=== PATIENT | female | born 2000 | race Hispanic/Latino ===

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

== ENCOUNTER 2019-05-31 18:02 | Emergency (ER) | payer MEDICAID, OTHER | END 2019-05-31 20:11 | disposition home or self-care (01) | LOC: EDH 18:02 | DX: N64.4 Mastodynia (principal) | CPT/HCPCS: 81025 ==

== ENCOUNTER 2019-10-25 11:26 | Emergency (ER) | payer OTHER ==
[2019-10-25] MEDS ORDERED: IBUPROFEN 200 MG TAB ONE (12:18)
[2019-10-25] MEDS ORDERED: IBUPROFEN 400 MG TABLET ONE (12:18)
== END 2019-10-25 13:49 | disposition home or self-care (01) ==
LOC: EDH 11:26
DX: N94.6 Dysmenorrhea, unspecified (principal); Z72.0 Tobacco use
CPT/HCPCS: 81025

== ENCOUNTER 2025-06-07 07:11 | Emergency (ER) | payer SELFPAY ==
[~2025-06-07] VITALS: Ht 160 cm; Wt 63.5 kg
--- NOTE | 2025-06-07 07:27 | ERN ---
General Chief Complaint: Nausea,Vomiting,Diarrhea Stated Complaint: NAUSEA Time Seen by MD: 07:15 Source: patient History of Present Illness Initial Comments Patient is a 25-year-old female at six weeks by date coming in due to nauseousness. Per patient she recently found out she was . She states he has been having nauseousness since then. No abdominal pain no fever no chills. Allergies: Coded Allergies: No Known Drug Allergies (Unverified Allergy, Unknown, 09/16/17) Home Meds No Active Prescriptions or Reported Meds Past Medical History Past Medical History: No Pertinent History Past Surgical History: None Female( History) : 4 Para: 2 Aborts: 0 ROS Dictation CONSTITUTIONAL: No chills, no fever, no weakness, no diaphoresis, no malaise. HEAD/FACE: No signs of trauma. EENT: No eye pain, no blurred vision, no tearing, no double vision, no ear pain, no ear discharge, no nose pain, no nasal congestion, no throat pain, no throat swelling, no mouth pain. RESPIRATORY: No cough, no orthopnea, no SOB, no stridor, no wheezing. CARDIOVASCULAR: No chest pain, no edema, no palpitations, no syncope. GASTROINTESTINAL/ABDOMINAL: No abdominal pain, no constipation, no diarrhea, no nausea, no vomiting. GENITOURINARY: No abnormal discharge, no dysuria, no frequent urination, no hematuria. No complaints of pain in the genitals. MUSCULOSKELETAL: No back pain, no gout, no joint pain, no joint swelling, no muscle pain, no muscle stiffness, no neck pain. INTEGUMENTARY: No change in color, no change in hair/nails, no dryness, no l esion, no lumps, no rash. NEUROLOGICAL/PSYCH: No anxiety, not depressed, no emotional problem, no headache, no numbness, no pre-existing deficit, no history of seizures, no tremors, no weakness. HEMATOLOGIC/LYMPHATIC: Not anemic, no history of blood clots, no apparent bleeding, no bruising, glands not swollen. All Systems Negative, Except as Noted. Physical Exam Physical Exam Dictation VITAL SIGNS: Reviewed. GENERAL APPEARANCE: Alert, oriented x3, no acute distress, obese. HEAD AND FACE: Non-traumatic. EYES: PERRL, pink conjunctivas, eyelid no trauma, anterior chamber clear. EARS: Pinnas intact and no signs of trauma or erythema. Ear canals clear and no discharge. TMs no erythema. NOSE: No discharge, no bleeding. OROPHARYNX: Mouth normal, teeth no caries, tongue pink. Pharynx clear, no erythema. Tonsils no exudates, no abscesses noted. Mucous membrane moist. NECK: Supple, non-tender, no thyromegaly, no masses, no JVD, no bruits. BREAST: Deferred. CHEST: No tenderness, no crepitus, no paradoxical movement, no retractions. LUNGS: Clear, well-ventilated, symmetric, no rales, no wheezing, no rhonchi, no stridor, good breath sounds bilaterally. HEART: Regular rate, regular rhythm, no murmur, no gallops. VASCULAR: No peripheral edema. ABDOMEN: Soft, positive bowel sounds, nondistended, no guarding, nontender, no rebound, no masses no hepatomegaly, no splenomegaly, no Gordon's sign, no hernias. RECTAL: Deferred. GENITAL: Deferred. NEUROLOGICAL: Normal speech, gross motor function intact, gross sensory function intact. MUSCULOSKELETAL: Neck nontender, full range of motion, back nontender, full range of motion. EXTREMITIES: Nontender, full range of motion. SKIN: Color pink, dry, no turgor, no rash, no lacerations, no abrasions, no contusions. LYMPHATICS: Deferred. Results Laboratory and Microbiology Lab and Micro Result Laboratory Tests Test 06/07/25 07:30 White Blood Count 6.9 K/uL (4.8-10.8) Red Blood Count 4.92 MIL/uL (4.00-5.50) Hemoglobin 14.4 g/dL (12.0-16.0) Hematocrit 42.0 % (36-48) Mean Corpuscular Volume 85.4 fL (79-99) Mean Corpuscular Hemoglobin 29.3 pg (27.0-33.0) Mean Corpuscular Hemoglobin Concent 34.3 g/dL (32.0-36.0) Red Cell Distribution Width 12.6 % (11.0-15.5) Platelet Count 224 K/uL (130-400) Mean Platelet Volume 10.3 fL (7.5-10.5) Immature Granulocyte % (Auto) 0.1 % (0-1) Neutrophils (%) (Auto) 65.4 % (40.0-77.0) Lymphocytes (%) (Auto) 26.2 % (21.0-51.0) Monocytes (%) (Auto) 5.8 % (3.0-13.0) Eosinophils (%) (Auto) 2.2 % (0.0-8.0) Basophils (%) (Auto) 0.3 % (0.0-5.0) Neutrophils # (Auto) 4.5 K/uL (1.8-7.7) Lymphocytes # (Auto) 1.8 K/uL (1.0-4.8) Monocytes # (Auto) 0.4 K/uL (0.1-1.0) Eosinophils # (Auto) 0.15 K/uL (0.00-0.70) Basophils # (Auto) 0.02 K/uL (0.00-0.20) Absolute Immature Granulocyte (auto 0.01 K/uL (0-1) Nucleated Red Blood Cells 0.0 % (0.0-0.19) Urine Color YELLOW (YELLOW) Urine Appearance CLOUDY (CLEAR) H Urine pH 6.0 (5.0-8.0) Urine Specific [place] 1.025 (1.001-1.031) Urine Protein 20 mg/dL (NEGATIVE) H Urine Glucose (UA) NEGATIVE mg/dL (NEGATIVE) Urine Ketones 150 mg/dL (NEGATIVE) H Urine Occult Blood NEGATIVE (NEGATIVE) Urine Nitrate 2+ (NEGATIVE) H Urine Bilirubin NEGATIVE mg/dL (NEGATIVE) Urine Urobilinogen 0.2 mg/dL (0.2-1.0) Urine Leukocyte Esterase 500 Dixie/uL (NEGATIVE) H Urine RBC 2-5 /HPF (0-1) H Urine WBC 11-25 /HPF (0-1) H Urine Squamous Epithelial Cells MOD /HPF (0-2) Urine Bacteria MOD /HPF (None Seen) Urine HCG, Qualitative POSITIVE (NEGATIVE) H Sodium Level 137 mmol/L (136-145) Potassium Level 3.0 mmol/L (3.5-5.1) *L Chloride Level 102 mmol/L (101-111) Carbon Dioxide Level 26 mmol/L (21-32) Blood Urea Nitrogen 8 mg/dL (7-18) Creatinine 0.6 mg/dL (0.5-1.0) Glomerular Filtration Rate Calc 127 mL/min (>90) Random Glucose 89 mg/dL (70-105) Total Calcium 8.4 mg/dL (8.5-10.1) L Human Chorionic Gonadotropin, Quant 2490 mIU/mL (0-5) H Labs Reviewed?: Yes MDM MDM: Differential diagnosis: , nausea vomiting, UTI, hypokalemia Rationale: Tests considered and ordered secondary to shared decision making include: Previous outside records reviewed: Old ER visits. Risk of complication and/or morbidity or mortality of patient management: None Medications-Per medication reconciliation Need for hospitalization: Patient does not meet criteria for hospitalization. Need for emergency major/minor surgery: No Patient is a 25-year-old female coming in complaining of nauseousness and vomiting. Per patient she recently found out she was . Laboratory workup positive for urinary tract infection potassium was low and was replaced. Patient will be discharged in stable condition with a diagnosis of UTI hypokalemia and new onset ED Course Orders Procedure Category Date Status Time Cbc With Differential LAB 06/07/25 Complete 07:21 ,Urine Test LAB 06/07/25 Complete 07:21 Urinalysis Profile LAB 06/07/25 Complete 07:21 0.9%Nacl 1000ml (Ns PHA 06/07/25 Complete 1000ml) 07:30 Basic Metabolic Panel LAB 06/07/25 Complete 07:21 Ondansetron 4mg Inj PHA 06/07/25 Complete (Zofran 4mg Inj) 07:30 Hcg,Quantitative LAB 06/07/25 Complete 07:21 Culture Urine RADHA 06/07/25 In Process 07:46 Ceftriaxone 1g Vial PHA 06/07/25 Complete (Rocephine 1g Inj) 08:00 Potassium Bicarb/Cit PHA 06/07/25 Transmitted Ac 25meq (K-Lyte Ta 09:00 Current Medications Medications (Trade) Dose Ordered Sig/Maria D Route PRN Reason Start Time Stop Time Status Last Admin Dose Admin Ceftriaxone Sodium (ROCEphine 1G INJ) 1 gm ONCE ONCE IVPB 06/07/25 08:00 06/07/25 08:01 DC 06/07/25 08:29 Ondansetron HCl (zoFRAN 4MG INJ) 4 mg ONCE ONCE IVP 06/07/25 07:30 06/07/25 07:31 DC 06/07/25 08:29 Sodium Chloride 1,000 ml @ 0 mls/hr ONCE ONCE IV 06/07/25 07:30 06/07/25 07:31 DC 06/07/25 08:29 Vital Signs Date Time Temp Pulse Resp B/P (MAP) Pulse Ox O2 Delivery O2 Flow Rate FiO2 06/07/25 08:00 97.5 87 16 116/82 98 Room Air* 0 21 06/07/25 07:12 98.1 95 16 119/85 97 Room Air DX & DISP Disposition: Discharge Departure Impression: Primary Impression: UTI (urinary tract infection) Additional Impressions: , Hypokalemia Condition: Stable Scripts Doxylamine/Pyridoxine HCl (Diclegis Dr 10-10 mg Tablet) 10 Mg-10 Mg Tablet.dr 2 TAB PO HS for 10 Days, #20 TAB 0 Refills Prov: CHRIS VERONICA MD 06/07/25 Cephalexin Monohydrate (Keflex) 500 Mg Cap 1 CAP PO BID for 10 Days, #20 CAP 0 Refills Prov: CHRIS VERONICA MD 06/07/25 Additional Instructions: FOLLOW-UP WITH PRIMARY CARE PROVIDER IN 1 TO 2 DAYS. TAKE MEDICATIONS DIRECTED HERE IN THE EMERGENCY ROOM. OKAY TO CONTINUE HOME MEDICATIONS UNLESS OTHERWISE DISCUSSED DURING YOUR VISIT IN THE EMERGENCY ROOM TODAY. RETURN TO YOUR NEAREST EMERGENCY ROOM IF SYMPTOMS WORSEN OR IF THERE IS NO IMPROVEMENT. CALL 911 IF YOU NEED IMMEDIATE ASSISTANCE. TAKE TYLENOL [id number] NEEDED AND IF NO CONTRAINDICATIONS ARE PRESENT. INCREASE ORAL HYDRATION. A WOUND CULTURE OR URINE CULTURE WAS ORDERED HERE IN THE EMERGENCY ROOM DEPARTMENT PLEASE FOLLOW-UP WITH PRIMARY CARE PROVIDER AND ADVISE THEM TO GET REPORTS FROM OUR FACILITY. IF YOU HAD ANY YURY WRAP/SPLINTS THAT WERE APPLIED HERE, PLEASE DO NOT REMOVE THEM UNTIL YOU SEE YOUR PRIMARY CARE OR SPECIALTY. Referrals: Referrals: SELF,REFERRAL (PCP) RADHA JUAREZ MD Time of Disposition: 08:59 CHRIS VERONICA MD Jun 07, 2025 07:27
[2025-06-07 07:43] LABS: IMMATURE GRANULOCYTE ABSOLUTE 0.01 K/uL (0-1); NUCLEATED RED BLOOD CELLS 0.0 % (0.0-0.19); PLATELET COUNT (AUTO) 224 K/uL (130-400); RED BLOOD CELL COUNT(AUTO) 4.92 MIL/uL (4.00-5.50); RED CELL DISTRIBUTION WIDTH 12.6 % (11.0-15.5); WHITE BLOOD COUNT (AUTO) 6.9 K/uL (4.8-10.8)
[2025-06-07 07:45] LABS: APPEARANCE,URINE CLOUDY (CLEAR); GLUCOSE, URINE (UA) NEGATIVE (NEGATIVE); LEUKOCYTE ESTERASE ,URINE 500 Leu/uL (NEGATIVE); NITRATE,URINE 2+ (NEGATIVE); OCCULT BLOOD,URINE NEGATIVE (NEGATIVE)
[2025-06-07 07:46] LABS: ADD UA MICROSCOPIC YES
[2025-06-07 07:51] LABS: HCG,QUALITATIVE URINE POSITIVE (NEGATIVE)
[2025-06-07 07:52] LABS: SQUAMOUS EPITHELIAL CELL,UR MOD /HPF (0-2)
[2025-06-07] MEDS: 0.9%NACL 1000ML 1,000 ML IV ONE (08:29)
[2025-06-07 08:40] LABS: CREATININE 0.6 mg/dL (0.5-1.0); GLOMERULAR FILTR. RATE CALC 127.0 mL/min (>90); GLUCOSE,RANDOM 89.0 mg/dL (70-105); HCG,QUANTITATIVE 2490.0 mIU/mL (0-5); SODIUM SERUM 137.0 mmol/L (136-145); UREA NITROGEN, BLOOD 8.0 mg/dL (7-18)
[2025-06-07] MEDS ORDERED: DOXY1TAB3 PO (09:00)
[2025-06-07] MEDS ORDERED: CEPH500B PO (09:00)
[2025-06-07 09:34] VITALS: BP 110/63; PULSE 77; RESP 19; TEMP 98.1; O2SAT 96
--- NOTE | 2025-06-07 09:34 | NUR ---
DC PATIENT WAS DC'D BY DR JEREMÍAS Solis DC'D PATIENTS IV WITH CATH STILL INTACT AND APPLIED 2X2 GAUZE WITH COBAN I EXPLAINED TO PATIENT TO FOLLOW UP WITH PCP, PROVIDED INFO BASED ON DIAGNOSIS, PRESCRIPTIONS AND ANSWERED ANY FOLLOW UP QUESTIONS PATIENT AMBULATED OUT OF ED, NO COMPLICATIONS
== END 2025-06-07 09:28 | disposition home or self-care (01) ==
LOC: EDH 07:11
DX: O23.41 Unspecified infection of urinary tract in pregnancy, first trimester (principal); N39.0 Urinary tract infection, site not specified; O99.281 Endocrine, nutritional and metabolic diseases complicating pregnancy, first trimester; E87.6 Hypokalemia; O26.891 Other specified pregnancy related conditions, first trimester; R10.2 Pelvic and perineal pain; Z3A.01 Less than 8 weeks gestation of pregnancy
CPT/HCPCS: 99284; 96365; 96375; 80048; 84702; 85025; 87086 ×2; 87186; 81001; 81025; 36415; J7030; J0696; J2405

== ENCOUNTER 2025-06-11 13:03 | Emergency (ER) | payer MEDICAID ==
[~2025-06-11] VITALS: Ht 160 cm; Wt 65.8 kg
[~2025-06-11 13:03] MED LIST: CEPH500B PO; DOXY1TAB3 PO
[2025-06-11 13:28] LABS: IMMATURE GRANULOCYTE ABSOLUTE 0.05 K/uL (0-1); NUCLEATED RED BLOOD CELLS 0.0 % (0.0-0.19); PLATELET COUNT (AUTO) 326 K/uL (130-400); RED BLOOD CELL COUNT(AUTO) 5.59 MIL/uL (4.00-5.50); RED CELL DISTRIBUTION WIDTH 12.3 % (11.0-15.5); WHITE BLOOD COUNT (AUTO) 10.8 K/uL (4.8-10.8)
[2025-06-11 13:32] LABS: ADD UA MICROSCOPIC YES; APPEARANCE,URINE HAZY (CLEAR); GLUCOSE, URINE (UA) NEGATIVE (NEGATIVE); LEUKOCYTE ESTERASE ,URINE 250 Leu/uL (NEGATIVE); NITRATE,URINE NEGATIVE (NEGATIVE); OCCULT BLOOD,URINE LARGE (NEGATIVE)
[2025-06-11 13:35] LABS: SQUAMOUS EPITHELIAL CELL,UR MANY /HPF (0-2)
[2025-06-11] MEDS: 0.9%NACL 1000ML 1,000 ML IV STA (14:07)
[2025-06-11 14:09] LABS: ASPARTATE AMINOTRANSFERASE 26.0 U/L (10-37); CREATININE 0.7 mg/dL (0.5-1.0); GLOMERULAR FILTR. RATE CALC 122.0 mL/min (>90); GLUCOSE,RANDOM 89.0 mg/dL (70-105); SODIUM SERUM 133.0 mmol/L (136-145); TOTAL PROTEIN, SERUM 8.7 g/dL (6.0-8.3); UREA NITROGEN, BLOOD 13.0 mg/dL (7-18)
[2025-06-11 14:26] LABS: SARS-CoV-2, RNA, NAAT NEGATIVE SARS CoV-2 (NEGATIVE)
[2025-06-11 14:31] LABS: INFLUENZA TYPE A Negative For Type A (NEGATIVE); INFLUENZA TYPE B Negative For Type B (NEGATIVE)
[2025-06-11 14:40] LABS: HCG,QUANTITATIVE 9896.0 mIU/mL (0-5)
--- NOTE | 2025-06-11 15:42 | HMCIMG ---
EXAM: US Obstetrical, Complete <14 weeks CLINICAL HISTORY: vaginal bleeding TECHNIQUE: Transabdominal imaging of the maternal pelvis and a <14 week gestation with image documentation. COMPARISON: US OB dated 01/16/2025 FINDINGS: Gestation: Sac-like structure was noted within the uterus, measuring approximately 0.66 cm, corresponding to an estimated gestational age of about 5 weeks 4 days. No pole or yolk sac was visualized. Uterus: Measures 12 ??? 5 ??? 10 cm. No focal myometrial mass identified. Endometrium: Amniotic/anechoic area is seen in the uterus. Possible small subchorionic hemorrhage measuring about 2 cm. Cervix: Closed. Unremarkable. Right Ovary: Measures 3.8 ??? 2 ??? 3 cm with normal flow. Left Ovary: Measures 3 ??? 2 ??? 2 cm with normal flow. Cul-de-sac: Within normal limits. IMPRESSION: 1. Intrauterine gestational sac measuring 0.66 cm, consistent with approximately 5 weeks 4 days gestation. No pole or yolk sac visualized. Recommend follow-up ultrasound imaging. 2. Possible small subchorionic hemorrhage measuring about 2 cm. /[place]
--- NOTE | 2025-06-11 15:43 | ERN ---
ED Note History of Present Illness Stated Complaint: NAUSEA/VOMITING Chief Complaint: Nausea,Vomiting,Diarrhea Time Seen by MD: 13:05 Time Seen by Midlevel: 13:10 Dictation: 25-year-old female coming in with complaints of nausea and vomiting it is vagi nal bleeding states since Thursday. Patient is , states her LMP is the end of March. . Patient was seen here also couple of days ago but at that time she did have any vaginal bleeding. No OBGYN. Allergies: Coded Allergies: No Known Drug Allergies (Unverified Allergy, Unknown, 09/16/17) Home Meds Active Scripts Doxylamine/Pyridoxine HCl (Diclegis Dr 10-10 mg Tablet) 10 Mg-10 Mg Tablet.dr, 2 TAB PO HS for 10 Days, #20 TAB 0 Refills Prov:CHRIS VERONICA MD 06/07/25 Cephalexin Monohydrate (Keflex) 500 Mg Cap, 1 CAP PO BID for 10 Days, #20 CAP 0 Refills Prov:CHRIS VERONICA MD 06/07/25 Past Medical History Past Medical History: No Pertinent History Surgical History: Other Surgical History Other: BBL : 3 Para: 2 Aborts: 0 Review of System Dictation Constitutional: Negative for fever,chills, and weight loss Eyes: Negative for injury, pain,redness, and discharge ENT: Negative for injury,pain or swelling Cardiovascular: Negative for chest pain, palpitations, and edema Respiratory: Negative for shortness of breath, cough, and wheezing, Abdomen/GI: Abdominal pain with nausea and vomiting Back: Negative for injury and pain : Negative for injury, bleeding and discharge MS/Extremity: Negative for injury and deformity Skin: Negative for rash, and discoloration Neuro: Negative for headache, weakness, numbness, tingling, and seizure Psych: Negative for suicide ideation, homicidal ideation, and hallucinations Review of Systems: was completed Initial Vital Sign VS Vital Signs Date Time Temp Pulse Resp B/P (MAP) Pulse Ox O2 Delivery O2 Flow Rate FiO2 06/11/25 13:05 98.4 103 20 125/68 98 0 06/11/25 13:21 Room Air* 21 Physical Exam Dictation General: awake, alert, NAD Head/Face: Normocephalic, atraumatic Eyes: PERRL, EOMI, vision at baseline ENT: oral cavity clear, TMs clear, no signs of infection Neck: Trachea midline, supple, no nuchal rigidity Cardiovascular: RRR, normal S1/S2, No MRGs, no JVD Respiratory: CTAB, no respiratory distress, No rales or wheezes Abdomen: Soft, non-tender, non-distended, normal bowel sounds, no guarding or rebound. Skin: Warm, dry, normal turgor, no rash MS/Extremity: Pulses equal, no cyanosis, neurovascular intact, FROM Neuro: COAx4, GCS 15, strength 5/5, CN 2-12 intact, normal cerebellar exam, normal gait, Psych: Normal behavior, mood, and affect normal Results (Laboratory/Radiology) Laboratory/Radiology Laboratory Tests Test 06/11/25 13:20 06/11/25 13:24 06/11/25 13:51 White Blood Count 10.8 K/uL (4.8-10.8) Red Blood Count 5.59 MIL/uL (4.00-5.50) H Hemoglobin 16.2 g/dL (12.0-16.0) H Hematocrit 46.4 % (36-48) Mean Corpuscular Volume 83.0 fL (79-99) Mean Corpuscular Hemoglobin 29.0 pg (27.0-33.0) Mean Corpuscular Hemoglobin Concent 34.9 g/dL (32.0-36.0) Red Cell Distribution Width 12.3 % (11.0-15.5) Platelet Count 326 K/uL (130-400) Mean Platelet Volume 10.1 fL (7.5-10.5) Immature Granulocyte % (Auto) 0.5 % (0-1) Neutrophils (%) (Auto) 67.0 % (40.0-77.0) Lymphocytes (%) (Auto) 25.3 % (21.0-51.0) Monocytes (%) (Auto) 5.8 % (3.0-13.0) Eosinophils (%) (Auto) 1.0 % (0.0-8.0) Basophils (%) (Auto) 0.4 % (0.0-5.0) Neutrophils # (Auto) 7.3 K/uL (1.8-7.7) Lymphocytes # (Auto) 2.7 K/uL (1.0-4.8) Monocytes # (Auto) 0.6 K/uL (0.1-1.0) Eosinophils # (Auto) 0.11 K/uL (0.00-0.70) Basophils # (Auto) 0.04 K/uL (0.00-0.20) Absolute Immature Granulocyte (auto 0.05 K/uL (0-1) Nucleated Red Blood Cells 0.0 % (0.0-0.19) Sodium Level 133 mmol/L (136-145) L Potassium Level 3.0 mmol/L (3.5-5.1) *L Chloride Level 95 mmol/L (101-111) L Carbon Dioxide Level 27 mmol/L (21-32) Blood Urea Nitrogen 13 mg/dL (7-18) Creatinine 0.7 mg/dL (0.5-1.0) Glomerular Filtration Rate Calc 122 mL/min (>90) Random Glucose 89 mg/dL (70-105) Total Calcium 9.5 mg/dL (8.5-10.1) Total Bilirubin 1.5 mg/dL (0.2-1.0) H Direct Bilirubin 0.4 mg/dL (0.0-0.3) H Aspartate Amino Transf (AST/SGOT) 26 U/L (10-37) Alanine Aminotransferase (ALT/SGPT) 77 U/L (12-78) Alkaline Phosphatase 57 U/L (50-136) Total Protein 8.7 g/dL (6.0-8.3) H Albumin 4.6 g/dL (3.5-5.0) Lipase 36 U/L (16-77) Human Chorionic Gonadotropin, Quant 9896 mIU/mL (0-5) H Urine Color YELLOW (YELLOW) Urine Appearance HAZY (CLEAR) Urine pH 6.5 (5.0-8.0) Urine Specific [place] 1.029 (1.001-1.031) Urine Protein 30 mg/dL (NEGATIVE) H Urine Glucose (UA) NEGATIVE mg/dL (NEGATIVE) Urine Ketones 150 mg/dL (NEGATIVE) H Urine Occult Blood LARGE (NEGATIVE) H Urine Nitrate NEGATIVE (NEGATIVE) Urine Bilirubin 0.5 mg/dL (NEGATIVE) H Urine Urobilinogen 3 mg/dL (0.2-1.0) H Urine Leukocyte Esterase 250 Dixie/uL (NEGATIVE) H Urine RBC 6-10 /HPF (0-1) H Urine WBC 11-25 /HPF (0-1) H Urine Squamous Epithelial Cells MANY /HPF (0-2) Urine Bacteria FEW /HPF (None Seen) Influenza Type A Antigen Negative For Type A Influenza Type B Antigen Negative For Type B SARS-CoV-2, RNA, NAAT NEGATIVE SARS CoV-2 Labs Reviewed?: Yes ED Course ED Course Orders Procedure Category Date Status Time Cbc With Differential LAB 06/11/25 Complete 13:13 Basic Metabolic Panel LAB 06/11/25 Complete 13:13 Urinalysis Profile LAB 06/11/25 Complete 13:13 Hcg,Quantitative LAB 06/11/25 Complete 13:13 Lipase LAB 06/11/25 Complete 13:13 Hepatic Function Panel LAB 06/11/25 Complete 13:13 Culture Urine RADHA 06/11/25 In Process 13:32 Covid Rna Naat LAB 06/11/25 Complete 13:40 Influenza Type A & B, LAB 06/11/25 Complete Rapid 13:40 0.9%Nacl 1000ml (Ns PHA 06/11/25 Complete 1000ml) 14:00 Ondansetron 4mg Inj PHA 06/11/25 Complete (Zofran 4mg Inj) 14:00 Us Ob <14 Weeks US 06/11/25 Taken 14:00 Potassium Bicarb/Cit PHA 06/11/25 Complete Ac 25meq (K-Lyte Ta 14:48 Current Medications Medications (Trade) Dose Ordered Sig/Maria D Route PRN Reason Start Time Stop Time Status Last Admin Dose Admin Ondansetron HCl (zoFRAN 4MG INJ) 4 mg ONCE STAT IVP 06/11/25 14:00 06/11/25 14:04 DC 06/11/25 14:07 Potassium Bicarbonate (K-Lyte Tablet Eff 25 Meq Tablet.eff) 50 meq ONCE STAT PO 06/11/25 14:48 06/11/25 14:51 DC 06/11/25 14:59 Sodium Chloride 1,000 ml @ 1,000 mls/hr Q1H STAT IV 06/11/25 14:00 06/11/25 14:59 DC 06/11/25 14:07 Vital Signs Date Time Temp Pulse Resp B/P (MAP) Pulse Ox O2 Delivery O2 Flow Rate FiO2 06/11/25 13:21 98.2 100 16 125/68 98 Room Air* 0 21 06/11/25 13:05 98.4 103 20 125/68 98 0 Medical Decision Making MDM MDM: 25-year-old female coming in with complaints of nausea and vomiting it is vaginal bleeding states since Thursday. Patient is , states her LMP is the end of March. . Patient was seen here also couple of days ago but at that time she did have any vaginal bleeding. No OBGYN.CBC shows no leukocy tosis, no anemia, no thrombocytopenia. Chemistry shows hypokalemia at 3.0, this was also present previous time he was here. Hyponatremia at 1:33 a.m. and hypochloremia 95. And 1 L of NS given in the ER. Normal kidney function. No transaminitis. Lipase within normal range. HCG is 9896. Urine still shows urinary tract infection, patient was also diagnosed with a UTI three days ago when she was seen here and she was placed on antibiotics. Negative for flu and COVID. Patient states she has not gotten the prescription for the nausea or the antibiotics. Express to the patient that she needs to go and follow up and receive those prescriptions or she will not have any improvement. Also educated on the importance of following with the OBGYN. In his Preliminary report of the ultrasound shows bilateral ovarian flu, possible early gestation, in his subchorionic hemorrhage measuring 2 cm. No pole or yolk sac. Differential diagnosis: Hyperemesis , electrolyte abnormality, threatened Rationale: Tests considered and ordered secondary to shared decision making include: Previous outside records reviewed: Old ER visits. Risk of complication and/or morbidity or mortality of patient management: None Medications-Per medication reconciliation Need for hospitalization: Patient does not meet criteria for hospitalization. Need for emergency major/minor surgery: No There are no social concerns with this patient. Prescription drug management Prescriptions will include symptomatic care Patient's prior external medical records from other ER visits were reviewed by me as indicated. Prior testing and results from previous visits were reviewed. Prior tests were taken into account with medical decision making and resource utilization, independent historian/historians were used to obtain complete medical history. I independently interpreted the test that were performed, results were reviewed by me and considered findings on radiology if ordered. Medical management and examination interpretation discussions were had by me with other qualified healthcare professionals as indicated for the patient's care. DX & DISP Disposition: Discharge Departure Impression: Primary Impression: Hypokalemia Additional Impressions: UTI (urinary tract infection), , Non compliance w medication regimen Condition: Stable Additional Instructions: You need to fill the prescriptions that they gave you a few days ago for a urinary tract infection and your nausea medication with a that is prescriptions he will not get better. You need to see an OBGYN tomorrow and return to the hospital as needed. Referrals: SELF,REFERRAL (PCP) Time of Disposition: 15:40 I have reviewed the case, and I agree with, Diagnosis and Plan CESAR LECHUGA [employer] Jun 11, 2025 15:43
[2025-06-11 15:45] VITALS: BP 124/64; PULSE 96; RESP 16; TEMP 98.2; O2SAT 98
== END 2025-06-11 15:52 | disposition home or self-care (01) ==
LOC: EDH 13:03 → EEVIPCON 13:03 → EDH 15:52
DX: O26.891 Other specified pregnancy related conditions, first trimester (principal); E87.6 Hypokalemia; R10.2 Pelvic and perineal pain; O23.40 Unspecified infection of urinary tract in pregnancy, unspecified trimester; N39.0 Urinary tract infection, site not specified; Z91.148 Patient's other noncompliance with medication regimen for other reason; Z20.822 Contact with and (suspected) exposure to COVID-19; Z3A.01 Less than 8 weeks gestation of pregnancy
CPT/HCPCS: 99285; 96374; 76801; 87635; 80076; 80048; 84702; 83690; 85025; 87086; 87804 ×2; 81001; 36415; J7030; J2405